=== PATIENT | female | born 1945 | race Caucasian/White ===

== ENCOUNTER 2018-01-04 10:47 | Inpatient (IN) ==
--- NOTE | 2018-01-04 10:05 | Anesthesia Evaluation PreOp ---
Date of Encounter: 01/04/18 Time of Encounter: 11:21 - Past History Planned Operation: Left Carotid Endarterectomy Cardiac History: HTN, Hyperlipidemia Pulmonary History: Former smoker (quit 25 years ago), COPD [employer] History: Denies Any Significant HX Other Medical History: GERD Anesthesia History: No Prior Anesthetic Complications, Past Anesthesia Alcohol Use: none Drug use: none Medications and Allergies Albuterol Sulfate [Ventolin Hfa] 2 puff IH Q4H PRN 01/04/18 [History] Aspirin 81 mg PO DAILY 01/04/18 [History] Budesonide/Formoterol 160/4.5 [Symbicort 160/4.5] 2 puff IH BIDR 01/04/18 [ History] Lisinopril [Zestril] 20 mg PO HS 01/04/18 [History] Loratadine [Allergy Relief] 10 mg PO DAILY PRN 01/04/18 [History] Simvastatin [Zocor] 20 mg PO DAILY 01/04/18 [History] hydroCHLOROthiazide [Hydrochlorothiazide] 25 mg PO DAILY 01/04/18 [History] raNITIdine HCl [Ranitidine HCl] 150 mg PO HS PRN 01/04/18 [History] 3 Allergy/AdvReac Type Severity Reaction Status Date / Time No Known Allergies Allergy Verified 01/04/18 11:25 - Meds/Allergy Pre-op Review Medications Reviewed: Yes Allergies Reviewed: Yes Beta Blockers on Current Med List: No Anesthesia Results - Labs Laboratory Tests 12/28/16 12/28/17 12/28/17 08:13 12:48 12:48 WBC 6.6 Hgb 13.7 Hct 41.3 Plt Count 269 PT 10.5 INR 1.0 APTT 28.6 Sodium 134 L Potassium 4.3 BUN 23 Creatinine 0.64 - Imaging EKG: report reviewed (12/28/2017 SINUS RHYTHM) Additional studies: 05/13/2016 Echo Impressions: Normal LV chamber size, wall thickness, and systolic function. LVEF 65-70%. Mild left ventricular diastolic dysfunction. Normal right ventricular structure and function. No significant valvular dysfunction. No evidence of pulmonary hypertension. Anesthesia Exam O2 Sat Height 1.57 m Height 1.57 m Weight 67.585 kg Weight 67.585 kg O2 Sat by Pulse Oximetry 97 Vital Signs Temp Pulse Resp BP Pulse Ox 97.7 F 73 18 135/74 97 01/04/18 11:11 01/04/18 11:11 01/04/18 11:11 01/04/18 11:11 01/04/18 11:11 Height: 5'2'' Weight: 149 lbs NPO (# of Hours): 8 Pain Scale: 0 Pain Scale Used: Numeric (1 - 10) - HEENT Pupil (Motor): EOMI Mallampati: II Teeth: Normal Oral Opening: Greater than 3 - [employer] LOC: Oriented [employer] Motor: Normal RUE, Normal LUE, Normal RLE, Normal LLE, Normal Face [employer] Sensory: Normal: RUE, LUE, RLE, LLE, Face - Cardiac Rhythm: Regular Murmur: None - Pulmonary Breath Sounds: bilateral Clear Respiratory Effort: Symmetrical Anesthesia Assess/Plan ASA Score: 2 Modified Cornel Scale for Level of Consciousness: Cooperative, oriented, and tranquil Anesthetic Plan: General Monitoring Plan: Standard Monitors, A-Line Recovery Plan: PACU
[2018-01-04] MEDS ORDERED: CeFAZolin Syr 2,000MG/20 ML 2,000 MG/20 ML SYRINGE IVPB ONE (11:05)
[2018-01-04] MEDS ORDERED: Albuterol 2.5 MG/3 ML NEBULIZER IH ONE (11:24)
--- NOTE | 2018-01-04 11:32 | History & Physical Report ---
Date of Encounter: 01/04/18 Time of Encounter: 11:10 24 Hour HP Update - Instructions Instructions: If the History and Physical is less than 30 days old and was completed prior to A.M. admission and or procedure and has NOT been updated on calendar day of procedure please complete this update prior to performing procedure. - Update Patient reports changes in Medical Condition: No Changes in examination, assessment, or condition: No Changes in Medication: No Preop tests/diagnostics Reviewed: Yes Surgery Remains Indicated: Yes Consent for Planned Operative Procedure(s) Verified: Yes - Pre-Operative Checklist Preoperative Checklist Indicated: Yes Prophylactic Antibiotic Ordered: Yes (vancomycin due to MRSA risk) Home Medications Include Beta Claire: No Beta Claire Taken Today (Day of Surgery): No Beta Claire Taken Yesterday (Day Prior to Surgery): No Is VTE Prophylaxis Indicated?: Yes
[2018-01-04] MEDS ORDERED: *HR* Propofol 200 MG/20 ML VIAL IVP ONE (11:33)
[2018-01-04] MEDS: Ringers Solution, Lactated 1,000 ML IVC SCH ×2 (11:33→16:26)
[2018-01-04] MEDS ORDERED: *HR* FentaNYL (PF) 100 MCG/2 ML VIAL ONE ×2 (11:33→14:37)
[2018-01-04] MEDS ORDERED: *HR* Succinylcholine 200 MG/10 ML VIAL IVP ONE (11:33)
[2018-01-04] MEDS ORDERED: Lidocaine -MPF 2% 2 ML VIAL ONE (11:33)
[2018-01-04] MEDS ORDERED: *HR* Remifentanil 2 MG VIAL IVP ONE (11:33)
[2018-01-04] MEDS ORDERED: Ondansetron 4 MG/2 ML VIAL ONE (11:33)
[2018-01-04] MEDS ORDERED: Heparin 1,000 UNITS/500 mL 500 ML ONE (11:34)
[2018-01-04] MEDS ORDERED: Heparin 1,000 UNITS/500 mL 1,000 ML ONE (11:45)
[2018-01-04] MEDS ORDERED: Lidocaine 1% 20 ML MDV ONE (11:45)
[2018-01-04] MEDS ORDERED: Protamine Sulfate 50 MG/5 ML VIAL IVP ONE ×3 (11:45→15:39)
[2018-01-04] MEDS ORDERED: Bupivacaine-MPF 0.25% 10 ML VIAL ONE (11:45)
[2018-01-04] MEDS ORDERED: *HR* PHENYLEPHRINE 1,000 MCG/10 ML SYRINGE IVP ONE (11:53)
[2018-01-04] MEDS ORDERED: *HR* Phenylephrine 10 MG/ML VIAL ONE (11:54)
[2018-01-04] MEDS ORDERED: *HR* Vasopressin 20 UNIT/ML VIAL ONE (12:23)
[2018-01-04] MEDS ORDERED: *HR* Labetalol 100 MG/20 ML MDV ONE (12:23)
[2018-01-04] MEDS ORDERED: *HR* Midazolam HCl 2 MG/2 ML VIAL ONE (12:34)
[2018-01-04] MEDS ORDERED: Dexamethasone 4 MG/ML VIAL ONE (13:04)
[2018-01-04] MEDS ORDERED: *HR* Heparin 5,000 UNIT/ML VIAL ONE ×2 (13:08→13:57)
[2018-01-04] MEDS ORDERED: EPHEDrine 50 MG/ML VIAL ONE (13:12)
[2018-01-04] MEDS ORDERED: Vancomycin 1,000 MG, Sodium Chloride IRRigation 1,000 ML IR ONE (13:30)
[2018-01-04] MEDS ORDERED: *HR* Meperidine 25 MG/ML SYRINGE IVP PRN (13:38)
[2018-01-04] MEDS ORDERED: Acetaminophen IV 1,000 MG/100 ML INFUS..BTL IVPB ONE (13:38)
[2018-01-04] MEDS ORDERED: *HR* Promethazine 25 MG/ML VIAL IVP PRN (13:38)
[2018-01-04] MEDS ORDERED: *HR* Labetalol 20 MG/4 ML SYRINGE IVP PRN ×2 (13:38→17:06)
--- NOTE | 2018-01-04 14:06 | Anesthesia Procedures ---
Date of Encounter: 01/04/18 Time of Encounter: 12:15 Procedures: Anesthesia - Arterial Line Consent obtained: written consent Time out performed: Yes Sedation: Fentanyl (mcg): 100 Supplemental Oxygen via Nasal Cannula (L/min): 2 Local Anesthetic: Lidocaine 1% Amount of Anesthetic used (mls): 2 Size (Gauge): 20 Length (inches): 1 3/4 Technique Used: sterile prep Post-Procedure: line taped into place, dry sterile dressing placed Patient tolerated procedure: well Complications: none Site: Radial R Vitals: O2 Sat Height 1.57 m Height 1.52 m Height 1.57 m Weight 67.585 kg Weight 66.678 kg Weight 67.585 kg O2 Sat by Pulse Oximetry 97 O2 Sat by Pulse Oximetry 97 O2 Sat by Pulse Oximetry 97 O2 Sat by Pulse Oximetry 97 Vital Signs Temp Pulse Resp BP Pulse Ox 97.7 F 73 18 135/74 97 01/04/18 11:10 01/04/18 11:10 01/04/18 11:10 01/04/18 11:10 01/04/18 11:10
[2018-01-04] MEDS: *HR* HYDROmorphone (PF) 1 MG/ML SYRINGE IVP PRN ×4 (15:20→16:10)
--- NOTE | 2018-01-04 15:55 | Operative Note ---
Date of procedure: 01/04/18 Pre-op diagnosis: Symptomatic 60-79% left internal carotid artery stenosis Post-op diagnosis: same Procedure: Left carotid endarterectomy with hemashield patch angioplasty Complications: None Anesthesia: GETA Surgeon: Jarocho Harris Was there an social science research assistant present: No Estimated blood loss (cc): 50 Specimen: left carotid plaque Condition: stable Disposition: PACU Procedure in Detail: Indications: The patient is a 72 year old female with a history of COPD, hypertension and hyperlipidemia who was found to have an 60-79% left internal carotid artery stenosis and multiple prior episodes of amaurosis fugax. A left carotid endarterectomy was recommended to reduce her risk of stroke. Procedure: The patient was identified in the preoperative area. The risks, benefits, and alternatives of the procedure were discussed and all questions were answered. The patient was then taken to the operating room and placed in supine position on the operating table. After induction of general endotracheal anesthesia, the patient was cleaned and draped in normal sterile fashion. A longitudinal incision was made anterior to the left sternocleidomastoid muscle. Hemostasis was obtained via electrocautery. Through a process of blunt , sharp, and electrocautery dissection, the platysma was traversed and the jugular vein was identified. The facial vein was dissected, clamped, divided and ligated with a 2-0 silk suture ligature. The jugular vein was retracted to expose the carotid bifurcation. The patient received 3000 units of heparin intravenously at this time. Proximal dissection of the common and external carotid arteries were performed circumferentially. Dissection of the internal carotid was performed circumferentially. Vessels loops were passed around the internal and external carotid and an umbilical tape was passed from the common carotid artery. The patient received additional 2000 units of heparin intravenously. After waiting adequate time for the heparin to circulate, the vessels were occluded and a longitudinal arteriotomy was made into the common carotid artery extending into the internal carotid beyond the plaque. The plaque was heavily calcified. Vigorous pulsatile retrograde flow was noted from the internal carotid artery upon release of the vessel loop. Due to the rapid pulsatile retrograde flow, no shunt was placed. A dental Rowena was then used to perform a standard endarterectomy. Proximal and distal endpoints were inspected. No elevated flaps were noted. Additional heparin was given throughout the procedure to maintain adequate anticoagulation. A Hemashield patch was cut to fit the defect and sutured in place with running 6 -0 Prolene. Prior to completing the closure, each vessel was flushed and then reoccluded. Heparinized saline was infused into the lumen. The patch was completed. Flow was restored in the external carotid artery, followed the common carotid artery, lastly the internal carotid artery was opened. A low resistance arterialized signal was present within the internal carotid artery beyond the patch. Thrombin and Gelfoam were used to aid in hemostasis. Meticulous hemostasis was obtained throughout the wound with electrocautery. Platelet rich and platelet poor plasma were infused into the wounds. The sternocleidomastoid was reapproximated with interrupted 3-0 Vicryl. Platelet rich and platelet poor plasma were infused into the wound. A TLS drain was brought through a separate stab incision and sutured in place with 0 silk suture. The platysma was reapproximated with running 3-0 Vicryl. Local anesthetic was infused in the skin. A 3-0 Monocryl was used to reapproximate the skin. A sterile dressing was applied. The patient was extubated, taken to the recovery room in stable condition.
--- NOTE | 2018-01-04 15:58 | Event Note ---
Date of Encounter: 01/04/18 Time of Encounter: 15:45 Patient seen and examined. She is alert without neurologic deficits. She has no hematoma. Decreased serosanguinous drain output after protamine given. Has expected postoperative pain. Pain control and clear liquids tonight.
[2018-01-04] MEDS ORDERED: *HR* HYDROcodone/Acet 5/325 mg TABLET PO PRN (17:06)
[2018-01-04] MEDS ORDERED: Naloxone 0.4 MG/ML INJ IVP PRN (17:06)
[2018-01-04] MEDS ORDERED: Loratadine 10 MG TABLET PO PRN (17:06)
[2018-01-04] MEDS ORDERED: Famotidine 20 MG TABLET PO PRN (17:06)
[2018-01-04] MEDS ORDERED: OXYCODONE Oral CONC 10 MG/0.5 ML ORAL.SYG SL PRN (17:06)
[2018-01-04] MEDS ORDERED: Ondansetron 4 MG/2 ML VIAL IVP PRN (17:06)
[2018-01-04] MEDS ORDERED: *HR* OxyCODONE Immed Rel 5 MG TABLET PO PRN (17:06)
[2018-01-04] MEDS ORDERED: Vancomycin 1,000 MG in D5% in Water 250 ML IVPB ONE (17:06)
[2018-01-04] MEDS ORDERED: Acetaminophen 325 MG TABLET PO PRN (17:06)
[2018-01-04] MEDS: *HR* Metoprolol 5 MG/5 ML VIAL IVP SCH ×3 (17:25→23:03)
--- NOTE | 2018-01-04 17:44 | Anesthesia Evaluation Post Op ---
Date of Encounter: 01/04/18 Time of Encounter: 16:05 Notes: Patient's vital signs have been reviewed. Patient is stable postoperatively and has adequately recovered from anesthesia. Patient is determined to have stable airway patency and respiratory function including respiratory rate and oxygen saturation. Patient has a stable heart rate, blood pressure and adequate hydration. Patients mental status is acceptable. Patients temperature is appropriate. Pain and nausea are adequately controlled. - Discharge PostOp Status: Discharge Patient to home
[2018-01-04] MEDS: OXYCODONE Oral CONC 10 MG/0.5 ML ORAL.SYG SL PRN (18:52)
[2018-01-04] MEDS: CeFAZolin Pre 2,000 MG/100 ML 2,000 MG/100 ML BAG IVPB SCH (19:56)
[2018-01-04] MEDS: Budesonide/Formoterol 160/4.5 MDI IH SCH (20:39)
[2018-01-04] MEDS ORDERED: Lisinopril 20 MG TABLET PO SCH (21:00)
[2018-01-05] MEDS: CeFAZolin Pre 2,000 MG/100 ML 2,000 MG/100 ML BAG IVPB SCH (03:26)
[2018-01-05] MEDS: *HR* Metoprolol 5 MG/5 ML VIAL IVP SCH (05:19)
[2018-01-05] MEDS ORDERED: *HR* Heparin 5,000 UNIT/ML VIAL SQ SCH ×2 (06:00)
--- NOTE | 2018-01-05 07:35 | Discharge Summary ---
Orders not resulted at time of discharge: Pending orders 01/04/18 14:43 Surgical Pathology [PTH] Routine Date of Encounter: 01/05/18 Time of Encounter: 07:50 - Discharge Diagnosis (1) Carotid stenosis, left Priority: Primary Status: Acute Comments: The patient is postoperative day #1 after left carotid endarterectomy for asymptomatic 60-79% stenosis. Her incision is healing well. She has no hematoma. She is neurologically intact. She will be discharged today. (2) COPD (chronic obstructive pulmonary disease) Priority: Secondary Status: Chronic Qualifiers: COPD type: emphysema Emphysema type: panlobular Qualified Code(s): J43.1 - Panlobular emphysema (3) Essential hypertension Priority: Secondary Status: Chronic Comments: She was counseled regarding atherosclerotic risk factor reduction. (4) Mixed hyperlipidemia Priority: Secondary Status: Chronic - Hospital Course Hospital course: Ms. Cho is a 72 year old female with a history of COPD hypertension and hyperlipidemia who was found to have a 60-79% symptomatic left internal carotid artery stenosis manifested by recurrent amaurosis fugax. She was admitted on where she underwent a left carotid endarterectomy. She tolerated this procedure well. She was discharged home in stable condition on postoperative day #1 without neurologic deficits or complications. - Time Spent with Patient Total time spent providing and/or coordinating discharge services: - Discharge Medications Prescriptions: HYDROcodone/Acet 5/325 mg [[place] 5-325 mg] 1 tab PO Q6HR PRN 4 Days #16 tablet PRN Reason: POSTOPERATIVE PAIN Home Medications: Albuterol Sulfate [Ventolin Hfa] 2 puff IH Q4H PRN 01/04/18 [History] Aspirin 81 mg PO DAILY 01/04/18 [History] Budesonide/Formoterol 160/4.5 [Symbicort 160/4.5] 2 puff IH BIDR 01/04/18 [ History] Lisinopril [Zestril] 20 mg PO HS 01/04/18 [History] Loratadine [Allergy Relief] 10 mg PO DAILY PRN 01/04/18 [History] Simvastatin [Zocor] 20 mg PO DAILY 01/04/18 [History] hydroCHLOROthiazide [Hydrochlorothiazide] 25 mg PO DAILY 01/04/18 [History] raNITIdine HCl [Ranitidine HCl] 150 mg PO HS PRN 01/04/18 [History] HYDROcodone/Acet 5/325 mg [[place] 5-325 mg] 1 tab PO Q6HR PRN 4 Days #16 tablet 01/05/18 [Rx] Allergies/Adverse Reactions: 3 Allergy/AdvReac Type Severity Reaction Status Date / Time No Known Allergies Allergy Verified 01/04/18 11:25 Date of admission: 01/04/18 16:49 Primary care physician: PCP NONE Procedure(s) Performed: Left carotid endarterectomy Discharging clinician: Jarocho Harris Anticipated date of discharge: 01/05/18 Exam Vital Signs, Last 4 Hours Temp Pulse Resp BP Pulse Ox 01/05/18 03:47 98.7 F 70 18 128/74 97 General: Present: Conversant, No Apparent Distress HEENT: Present: Trachea midline, Pupils equal Neck: Present: Other (no hematoma, no erythema). Absent: JVD Cardiac: Present: Reg Rate and Rhythm Lungs: Present: Normal Breath Sounds Neuro: Present: No focal deficits noted, Cranial nerves grossly intact Abdomen: Present: Soft Vascular: Present: Normal capillary refill, Surgical incisions (clean, dry and intact). Absent: Edema - Patient Status Disposition: Home, Self-Care Condition: Good Functional capacity at discharge: independent ambulation Overall status at discharge: patient is back to baseline - Discharge Instructions Instructions: Hydrocodone/Acetaminophen (By mouth), Carotid Endarterectomy (DC) , Surgical Site Infections (GEN) Follow Up With: Jarocho Harris MD [Partnered Physician] - 02/15/18 1:00 pm Watkins,Cassy Hammond CNP [Primary Care Provider] - 01/10/18 9:45 am NONE,PCP [Non-Partnered Physician] - Additional Instructions: May remove bandage and shower on 01/06/18. Wash wound gently and pat to dry. No driving or heavy lifting for [address] Harris at [phone] with questions or concerns. - Diet and Activity Activity: increase activity as tolerated Diet: advance to your usual diet - VTE Documentation of Mechanical Device: Intermittent pneumatic compression device
[2018-01-05 07:44] VITALS: BP 149/67
[2018-01-05] MEDS ORDERED: Aspirin 81 MG TAB.CHEW PO SCH (09:00)
[2018-01-05] MEDS ORDERED: hydroCHLOROthiazide 25 MG TABLET PO SCH (09:00)
[2018-01-05] MEDS: OXYCODONE Oral CONC 10 MG/0.5 ML ORAL.SYG SL PRN (09:24)
[2018-01-05] MEDS: Budesonide/Formoterol 160/4.5 MDI IH SCH (10:53)
== END 2018-01-05 11:16 | disposition home or self-care (01) | DRG 39 ==
LOC: SAMDAY 10:47 → 2NNU 16:49
PROVIDERS: ADMIT Surgery; ATTEND Surgery